=== PATIENT | female | born 1970 | race Caucasian/White ===

== ENCOUNTER 2020-09-24 09:37 | Emergency (ER) | payer OTHER ==
[~2020-09-24] VITALS: Ht 175.3 cm; Wt 84.8 kg
[2020-09-24] MEDS ORDERED: CIPROFLOXACIN500 M1 PO (10:31)
[2020-09-24] MEDS ORDERED: CLEOCIN HCL150 MG PO (10:31)
[2020-09-24 10:45] VITALS: BP 142/89
== END 2020-09-24 10:45 | disposition home or self-care (01) ==
LOC: M.ERS 09:37
DX: L08.9 Local infection of the skin and subcutaneous tissue, unspecified (principal); Z88.2 Allergy status to sulfonamides; Z88.8 Allergy status to other drugs, medicaments and biological substances